=== PATIENT | male | born 1990 | race African-American/Black ===

== ENCOUNTER 2018-06-17 02:09 | Emergency (ER) | payer BC, OTHER ==
[~2018-06-17] VITALS: Ht 190.5 cm; Wt 79.4 kg
[~2018-06-17 02:09] MED LIST: IBUPROFEN600 MG PO; NKM; PENICILLIN V P500 MG PO
[2018-06-17] MEDS ORDERED: NKM (02:27)
--- NOTE | 2018-06-17 02:30 | NUR ---
ED Nurse Note: pt walked in due to dizziness and nausea started midnight. Pt reports anal bleeding; denies trauma. Reports generalized pain. AO4. NAD. VSS.
[2018-06-17] MEDS ORDERED: Ketorolac 30mg Inj IV ONE (03:00)
--- NOTE | 2018-06-17 03:00 | NUR ---
ED Nurse Note: IV access established. Blood and urine collected; sent down to lab.
[2018-06-17 03:17] VITALS: BP 122/72
--- NOTE | 2018-06-17 03:22 | Emergency Room Report ---
History of Present Illness General Chief Complaint: Dizziness Source: Patient Present Illness HPI Is a 27-year-old male with no past medical history. He presents with chief complaint of rectal bleeding. He has a history of rectal bleeding for several years. Saw his primary care Dr. winter. Never had sigmoidoscopy or colonoscopy because he was in law school and now practicing. He said tonight rectal bleeding is worse. He fell body pain all over. Also with low-grade fever. Denies any nausea vomiting. Mild abdominal pain. Nothing made it better. Nothing made it worse. felt weak and tired. Denies any other complaint. Allergies: Coded Allergies: No Known Allergies (Unverified , 03/14/12) Patient History Past Medical History: none, see triage record, old chart reviewed Past Surgical History: none Pertinent Family History: none Social History: Denies: smoking Immunizations: other Reviewed Nursing Documentation: PMH: Agreed; PSxH: Agreed Nursing Documentation-PM Past Medical History: No Stated History Review of Systems Constitutional: Reports: fever, weakness Eye: Denies: eye pain, blurred vision ENT: Denies: ear pain, nose congestion, throat swelling Respiratory: Denies: cough, shortness of breath Cardiovascular: Denies: chest pain, palpitations Gastrointestinal: Denies: abdominal pain, diarrhea, nausea, vomiting Musculoskeletal: Denies: back pain, joint pain Skin: Denies: rash Neurological: Denies: headache, numbness Endocrine: Denies: increased thirst, increased urine Hematologic/Lymphatic: Denies: easy bruising All Other Systems: negative except mentioned in HPI Physical Exam Vital Signs Date Time Temp Pulse Resp B/P (MAP) Pulse Ox O2 Delivery O2 Flow Rate FiO2 06/17/18 02:20 100.2 86 14 122/72 96 Room Air vitals with fever Sp02 EP Interpretation: reviewed, normal General Appearance: well appearing, no apparent distress, alert Head: normocephalic, atraumatic Eyes: bilateral eye PERRL, bilateral eye EOMI ENT: hearing grossly normal, normal pharynx Neck: full range of motion, supple, no meningismus Respiratory: chest non-tender, lungs clear, normal breath sounds Cardiovascular #1: regular rate, rhythm, no murmur Gastrointestinal: normal bowel sounds, non tender, no mass, no organomegaly, no bruit, non-distended Rectal: other - External hemorrhoid. No thrombosis.. No bleeding. Musculoskeletal: back normal, gait/station normal, normal range of motion Neurologic: alert, oriented x3 Psychiatric: mood/affect normal Skin: warm/dry Medical Decision Making Diagnostic Impression: Primary Impression: Fever Qualified Codes: R50.9 - Fever, unspecified Additional Impression: Rectal bleeding ER Course Patient presents with fever and myalgia. Negative for influenza. This most likely of viral etiology. At this moment in time, no evidence of meningitis, sepsis, pneumonia to name a few. Patient felt better. We'll discharge home. Rectal bleeding is chronic. No evidence of anemia. This is secondary to hemorrhoid. No evidence of upper GI bleeding. Lab Results Impression labs unremarkable Last Vital Signs Date Time Temp Pulse Resp B/P (MAP) Pulse Ox O2 Delivery O2 Flow Rate FiO2 06/17/18 03:17 100.2 82 14 122/72 96 Room Air Status: improved Disposition: HOME, SELF-CARE Condition: Stable Scripts Ibuprofen* (MOTRIN*) 600 Mg Tablet 600 MG ORAL THREE TIMES A DAY, #30 TAB 0 Refills Prov: Bryn Zimmer MD 06/17/18 Referrals: NOT CHOSEN [facility]/,REFERRING (PCP) Additional Instructions: Rest. Increase fluids. Follow-up with your doctor in 2-3 days if not better. You may need a colonoscopy or sigmoidoscopy regarding rectal bleeding. Return if worse. Bryn Zimmer MD Jun 17, 2018 03:21
[2018-06-17 03:29] LABS: BASOPHILS % (AUTO) 0.7 % (0.0-2.0); EOSINOPHILS % (AUTO) 0.6 % (0.0-3.0); HEMATOCRIT 35.7 % (42.0-52.0); HEMOGLOBIN 12.4 G/DL (14.2-18.0); MEAN CORPUSCULAR VOLUME 79 FL (80-99); MONOCYTES % (AUTO) 7.4 % (1.0-10.0); NEUTROPHILS % (AUTO) 78.4 % (45.0-75.0); PLATELET COUNT 224 K/UL (150-450); RED BLOOD COUNT 4.53 M/UL (4.70-6.10); RED CELL DISTRIBUTION WIDTH 12.6 % (11.6-14.8); WHITE BLOOD COUNT 10.6 K/UL (4.8-10.8)
[2018-06-17 03:35] LABS: APPEARANCE,URINE CLEAR; BILIRUBIN, URINE NEGATIVE (NEGATIVE); COLOR,URINE PALE YELLOW; GLUCOSE, URINE (UA) NEGATIVE (NEGATIVE); KETONES,URINE NEGATIVE (NEGATIVE); LEUKOCYTE ESTERASE ,URINE NEGATIVE (NEGATIVE); NITRITE,URINE NEGATIVE (NEGATIVE); PH,URINE 6 (4.5-8.0); PROTEIN,URINE NEGATIVE (NEGATIVE); UROBILINOGEN,URINE NORMAL MG/DL (0.0-1.0)
[2018-06-17 03:40] LABS: ANION GAP 9 mmol/L (5-15); BLOOD UREA NITROGEN 10 mg/dL (7-18); CALCIUM 9.3 MG/DL (8.5-10.1); CARBON DIOXIDE 27 MMOL/L (21-32); CHLORIDE 102 MMOL/L (98-107); POTASSIUM 3.6 MMOL/L (3.5-5.1); SODIUM 138 MMOL/L (136-145)
--- NOTE | 2018-06-17 03:43 | NUR ---
ED Nurse Note: Patient reports a pain level of 4/10 upon reassessment post medication administration. patient is awake and alert X4, no s/s of acute distress. IV fluids complete, IV saline locked.
[2018-06-17] MEDS ORDERED: IBUPROFEN600 MG ORAL (04:41)
[2018-06-17] MEDS ORDERED: ANUSOL-HC25 MG RECTAL (04:44)
[2018-06-17 04:50] VITALS: BP 122/72
--- NOTE | 2018-06-17 04:50 | NUR ---
ED Nurse Note: Patient cleared for discharge per ERMD. NAD. VSS. Patient given prescriptions and discharge instructions; verbalized understanding. IV and ID band removed. Patient ambulated steady with all personal belongings.
== END 2018-06-17 04:50 | disposition home or self-care (01) ==
LOC: EMR 02:43
DX: R50.9 Fever, unspecified (principal); K62.5 Hemorrhage of anus and rectum; R42 Dizziness and giddiness; M79.10 Myalgia, unspecified site
CPT/HCPCS: 36415; 80048; 81001; 85025; 86710; 96361; 96374; 99284; J1885

== ENCOUNTER 2019-07-25 12:09 | Emergency (ER) | payer BC ==
[~2019-07-25] VITALS: Ht 190.5 cm; Wt 79.4 kg
[~2019-07-25 12:09] MED LIST changes: +ANUSOL-HC25 MG RECTAL; +IBUPROFEN600 MG ORAL
[2019-07-25 12:12] VITALS: BP 126/73
--- NOTE | 2019-07-25 19:09 | Emergency Room Report ---
History of Present Illness General Chief Complaint: Flu Like Symptoms Source: Patient Present Illness HPI This patient left prior to evaluation by medical provider. COVID-19 risk:Contact w/high r: No COVID-19 risk:Travel to affect: No Has patient experienced castaneda: Yes Coronavirus symptoms experienc: Fever (T>100.4F or >38C), Shortness of Breath, Flu-Like Symptoms Allergies: Coded Allergies: No Known Allergies (Unverified , 03/14/12) Nursing Documentation-[facility] Past Medical History: No Stated History Physical Exam Vital Signs Date Time Temp Pulse Resp B/P (MAP) Pulse Ox O2 Delivery O2 Flow Rate FiO2 07/25/19 12:12 100.4 91 17 126/73 (90) 97 Room Air Medical Decision Making PA Attestation Dr. Cote is my supervising Physician whom patient management has been discussed with. Diagnostic Impression: Primary Impression: FLU SYMPTOMS ER Course This patient left prior to evaluation by medical provider. Last Vital Signs Date Time Temp Pulse Resp B/P (MAP) Pulse Ox O2 Delivery O2 Flow Rate FiO2 07/25/19 12:18 91 17 Room Air 07/25/19 12:12 100.4 126/73 97 Disposition: LEFT W/OUT BEING SEEN Condition: Unknown Referrals: NOT CHOSEN [facility]/,REFERRING (PCP) Alicia Galo Jul 25, 2019 19:09
== END 2019-07-25 13:09 | disposition left against medical advice (07) ==
LOC: EDBD 12:09 → EMR 12:45
DX: J11.1 Influenza due to unidentified influenza virus with other respiratory manifestations (principal); Z53.21 Procedure and treatment not carried out due to patient leaving prior to being seen by health care provider